=== PATIENT | female | born 1980 | race Caucasian/White ===

== ENCOUNTER 2019-09-18 11:45 | Outpatient (CLI) | payer OTHER | END 2019-09-18 11:55 | disposition home or self-care (01) | LOC: RAD 11:45 | DX: R05 Cough (principal) ==

== ENCOUNTER 2021-07-25 08:10 | Outpatient (CLI) | payer OTHER | END 2021-07-25 08:17 | disposition home or self-care (01) | LOC: RAD 08:10 | PROVIDERS: ATTEND Internal Medicine Cardiovascular Disease | DX: R07.89 Other chest pain (principal); J12.0 Adenoviral pneumonia ==